=== PATIENT | female | born 1960 | race Caucasian/White ===

== ENCOUNTER 2018-04-02 22:38 | Emergency (ER) | payer MEDICAID ==
--- NOTE | 2018-04-03 00:34 | ER Document Report ---
ED General - General Mode of Arrival: Ambulatory Information source: Patient TRAVEL OUTSIDE OF THE U.S. IN LAST 30 DAYS: No - General Chief Complaint: Back Pain Stated Complaint: BACK PAIN Notes: 57 y.o female with chronic back pain presents to the ED with back pain. Pt reports that she just moved out here from [place] because her sister just and she moved here to take care of her nephew who would otherwise be living by himself. She reports that a couple years ago she had herniated the L3- L5 area and had a surgery on her back. She reports some severe nerve damage to her bilateral legs with burning and tingling radiating down her bilateral legs. She states that in the last 24 hours she has had exacerbated pain but she cannot associate it with anything. Pt reports that she has fallen in the past week. She denies any fever or trouble with urination. She reports taking ibuprofen for her pain without any relief. (NARESH SANTIAGO) - Related Data Allergies/Adverse Reactions: Penicillins Allergy (Verified 04/02/18 22:43) Sulfa (Sulfonamide Antibiotics) Allergy (Verified 04/02/18 22:43) Past Medical History - General Information source: Patient - Social History Smoking Status: Never Smoker Chew tobacco use (# tins/day): No Frequency of alcohol use: Rare Drug Abuse: None Family History: Reviewed & Not Pertinent Patient has suicidal ideation: No Patient has homicidal ideation: No Renal/ Medical History: Denies: Hx Peritoneal Dialysis Musculoskeletal Medical History: Reports Other - lumbar spine with herniated discs - repared with surgery Past Surgical History: Reports: Other - lumbar spine surgery for herniated discs Review of Systems - Review of Systems Constitutional: See HPI. denies: Fever Genitourinary: See HPI, Other - denies: trouble with urination Musculoskeletal: See HPI, Back pain Neurological/Psychological: Tingling - burning and tingling radiating down her legs Physical Exam - Vital signs Vitals: Temp Pulse Resp BP Pulse Ox 98.2 F 87 18 171/84 H 99 04/02/18 22:54 04/02/18 22:54 04/02/18 22:54 04/02/18 22:54 04/02/18 22:54 - Notes Notes: Physical Exam: General: Alert, appears well. HEENT: Normocephalic. Atraumatic. PERRL. Extraocular movements intact. Oropharynx clear. Neck: Supple. Non-tender. Respiratory: No respiratory distress. Clear and equal breath sounds bilaterally. Cardiovascular: Regular rate and rhythm. Abdominal: Normal Inspection. Non-tender. No distension. Normal Bowel Sounds. Back: Old, well healed surgical scar. Paraspinal tenderness to palpation. Midline tenderness to palpation. No bruising. No deformity or step off. Extremities: Moves all four extremities. Upper extremities: Normal inspection. Normal ROM. Lower extremities: Ambulatory. Normal inspection. No edema. Normal ROM. Neurological: Normal cognition. AAOx3. Normal speech. Psychological: Normal affect. Normal Mood. Skin: Warm. Dry. Normal color. old, well healed surgical scar to back. (NARESH SANTIAGO) Course - Re-evaluation Re-evalutation: 04/03/18 00:43 We will provide community care clinic to patient. She is well-appearing has no red flags to suggest infectious etiology or any concerns for cauda equina. Patient's pain radiates down both legs tingling in nature consistent with sciatica. Denies any dysuria. Will provide Decadron and Robaxin, community clinic referral also provided. (EDA RAMIREZ) - Vital Signs Vital signs: Temp Pulse Resp BP Pulse Ox 98.2 F 70 18 151/90 H 100 04/02/18 22:54 04/03/18 00:59 04/02/18 22:54 04/03/18 00:59 04/03/18 00:59 Discharge - Discharge Clinical Impression: Low back pain Qualifiers: Chronicity: chronic Back pain laterality: bilateral Sciatica presence: with sciatica Sciatica laterality: bilateral sciatica Qualified Code(s): M54.42 - Lumbago with sciatica, left side Condition: Good Disposition: HOME, SELF-CARE Instructions: Low Back Pain ([facility]) Additional Instructions: Please take medications as prescribed. You have been referred to community care in clinic please follow-up with them for reevaluation as well as consideration for pain management Prescriptions: Methocarbamol [Robaxin 750 mg Tablet] 750 mg PO ASDIR PRN #40 tablet PRN Reason: Referrals: [facility] [Provider Group] - Follow up as needed Scribe Attestation: 04/07/18 14:54 I personally performed the services described in the documentation, reviewed and edited the documentation which was dictated to the scribe in my presence, and it accurately records my words and actions. (EDA RAMIREZ) Scribe Documentation - Scribe Written by Eli:: Eli Aguiar 04/03/18 0040 acting as scribe for :: Julian
[2018-04-03] MEDS ORDERED: DEXAMETHASONE SOD PHOS INJ 10 MG/1 ML VIAL IM ONE (00:45)
[2018-04-03 01:51] VITALS: BP 151/90
== END 2018-04-03 01:01 | disposition home or self-care (01) ==
LOC: ER 22:38
DX: M54.42 Lumbago with sciatica, left side (principal); M54.9 Dorsalgia, unspecified; G89.29 Other chronic pain; R20.0 Anesthesia of skin
CPT/HCPCS: 99283; 96372; J1100

== ENCOUNTER 2018-07-06 13:38 | Emergency (ER) | payer MEDICAID ==
[2018-07-06 13:44] VITALS: BP 141/110
[2018-07-06] MEDS ORDERED: RINGERS SOLUTION,LACTATED 1,000 ML IV ONE (14:38)
--- NOTE | 2018-07-06 14:39 | ER Document Report ---
ED Medical Screen (RME) - General Chief Complaint: Weakness Stated Complaint: MUSCLE WEAKNESS Time Seen by Provider: 07/06/18 14:36 Notes: 58 years old female presents today with general malaise body aches and pain nausea and vomited once. Denies any dysuria frequency urgency. Difficult historian TRAVEL OUTSIDE OF THE U.S. IN LAST 30 DAYS: No - Related Data Allergies/Adverse Reactions: Penicillins Allergy (Verified 07/06/18 13:42) Sulfa (Sulfonamide Antibiotics) Allergy (Verified 07/06/18 13:42) Past Medical History - Social History Chew tobacco use (# tins/day): No Frequency of alcohol use: None Drug Abuse: None Renal/ Medical History: Denies: Hx Peritoneal Dialysis Past Surgical History: Reports: Hx Orthopedic Surgery - back, Other - lumbar spine surgery for herniated discs Physical Exam - Vital signs Vitals: Temp Pulse Resp BP Pulse Ox 98 F 71 18 141/110 H 98 07/06/18 13:42 07/06/18 13:42 07/06/18 13:42 07/06/18 13:42 07/06/18 13:42 Course - Vital Signs Vital signs: Temp Pulse Resp BP Pulse Ox 98 F 71 18 141/110 H 98 07/06/18 13:42 07/06/18 13:42 07/06/18 13:42 07/06/18 13:42 07/06/18 13:42
--- NOTE | 2018-07-06 15:33 | RADIOLOGY REPORT (SQ) ---
EXAM DESCRIPTION: ACUTE ABDOMEN SERIES COMPLETED DATE/TIME: 07/06/2018 3:23 pm REASON FOR STUDY: Nausea vomiting COMPARISON: None. NUMBER OF VIEWS: Three views. TECHNIQUE: Frontal chest, supine abdomen and upright/decubitus abdomen radiographic images acquired. LIMITATIONS: None. FINDINGS: CHEST: Lungs clear of infiltrates. FREE AIR: None. No abnormal gas collections. BOWEL GAS PATTERN: Nonobstructive pattern. No dilated loops or air fluid levels. Large burden of sto ol in the left and right colon with dense stool balls in the distal colon. CALCIFICATIONS: No suspicious calcifications. HARDWARE: Posterior lumbar fusion hardware of L3 through L5. SOFT TISSUES: No gross mass or suggestion of organomegaly. BONES: No acute fracture. No worrisome bone lesions. OTHER: No other significant finding. IMPRESSION: 1. No acute abnormality of the lungs in frontal projection. 2. Nonobstructive pattern of bowel gas with gas and stool present to the rectum. There is a large b urden of stool in the left and right colon with dense stool balls in the distal colon. No free air i n the abdomen. TECHNICAL DOCUMENTATION: JOB ID: [id number] [employer]- All Rights Reserved Reading location - IP/workstation name: [id number]
[2018-07-06] MEDS ORDERED: ONDANSETRON HCL INJ/PF 4 MG/2 ML SDV IV ONE (15:36)
[2018-07-06 15:58] LABS: ABSOLUTE BASOPHILS # (AUTO) 0.1 10^3/uL (0.0-0.2); ABSOLUTE EOSINOPHILS # (AUTO) 0.2 10^3/uL (0.0-0.6); ABSOLUTE LYMPHOCYTES (AUTO) 1.3 10^3/uL (0.5-4.7); ABSOLUTE MONOCYTES (AUTO) 0.4 10^3/uL (0.1-1.4); ABSOLUTE NEUT (AUTO) 5.6 10^3/uL (1.7-8.2); EOSINOPHILS % (AUTO) 2.1 % (0-6); HEMATOCRIT 45.6 % (36.0-47.0); HEMOGLOBIN 15.6 g/dL (12.0-15.5); LYMPHOCYTES % (AUTO) 16.9 % (13-45); MEAN CORPUSCULAR HEMOGLOBIN 31.8 pg (27.0-33.4); MEAN CORPUSCULAR HGB CONC 34.2 g/dL (32.0-36.0); MEAN CORPUSCULAR VOLUME 93 fl (80-97); MONOCYTES % (AUTO) 5.1 % (3-13); PLATELET COUNT 303 10^3/uL (150-450); RED CELL DISTRIBUTION WIDTH 13.1 % (11.5-14.0); SEGMENTED NEUTROPHILS % (AUTO) 74.9 % (42-78); TOTAL CELLS COUNTED % (AUTO) 100 %; WHITE BLOOD COUNT 7.4 10^3/uL (4.0-10.5)
[2018-07-06 16:22] LABS: A TYPE INFLUENZA AG NEGATIVE (NEGATIVE); B INFLUENZA AG NEGATIVE (NEGATIVE)
[2018-07-06 16:27] LABS: ALANINE AMINOTRANSFERASE 52 U/L (9-52); ALBUMIN 4.8 g/dL (3.5-5.0); ALKALINE PHOSPHATASE 117 U/L (38-126); ANION GAP 15 (5-19); ASPARTATE AMINO TRANSFERASE 47 U/L (14-36); BILIRUBIN,DIRECT 0.4 mg/dL (0.0-0.4); BILIRUBIN,TOTAL 0.9 mg/dL (0.2-1.3); BLOOD UREA NITROGEN 12 mg/dL (7-20); CALCIUM 10.1 mg/dL (8.4-10.2); CARBON DIOXIDE 28 mmol/L (22-30); CHLORIDE 99 mmol/L (98-107); GLUCOSE 108 mg/dL (75-110); POTASSIUM 4.9 mmol/L (3.6-5.0); SODIUM 142.2 mmol/L (137-145); TOTAL PROTEIN 7.5 g/dL (6.3-8.2)
[2018-07-06 16:29] LABS: CREATINE KINASE < 20 U/L (30-135)
[2018-07-06 16:43] LABS: FREE T3 3.52 pg/mL (2.77-5.27); FREE T4 (FREE THYROXINE) 1.44 ng/dL (0.78-2.19)
[2018-07-06 16:56] LABS: THYROID STIMULATING HORMONE 1.22 uIU/mL (0.47-4.68)
[2018-07-06 17:31] LABS: APPEARANCE,URINE SLIGHTLY-CLOUDY; BILIRUBIN,URINE SMALL (NEGATIVE); COLOR,URINE YELLOW; GLUCOSE, URINE NEGATIVE (NEGATIVE); KETONES,URINE TRACE mg/dL (NEGATIVE); LEUKOCYTE ESTERASE,URINE MODERATE (NEGATIVE); NITRITE,URINE NEGATIVE (NEGATIVE); PROTEIN,URINE 30 mg/dL (NEGATIVE); URINE SPECIFIC GRAVITY 1.029
--- NOTE | 2018-07-06 18:47 | ER Document Report ---
ED General - General Chief Complaint: Weakness Stated Complaint: MUSCLE WEAKNESS Time Seen by Provider: 07/06/18 14:36 Mode of Arrival: Ambulatory Information source: Patient Notes: 58-year-old female presents emergency department with points of generalized weakness, myalgias, nausea. Patient states that symptoms started 2 days ago. Patient denies any fever, chills, chest pain, shortness of breath, abdominal pain, dysuria, hematuria, increased urgency, increased frequency. No history of sick contacts. Patient also complains of a flair up of her chronic back pain. Says that she was prescribed oxycodone by her PCP but ran out of the medication and her PCP referred her to pain management. Patient is able to ambulate. Denies numbness, tingling, weakness, bowel or bladder incontinence. TRAVEL OUTSIDE OF THE [place] IN LAST 30 DAYS: No - HPI Onset: Other - 2-day history Onset/Duration: Gradual Associated symptoms: Other - back pain Exacerbated by: Denies Relieved by: Denies Similar symptoms previously: Yes Recently seen / treated by doctor: No - Related Data Allergies/Adverse Reactions: Penicillins Allergy (Verified 07/06/18 13:42) Sulfa (Sulfonamide Antibiotics) Allergy (Verified 07/06/18 13:42) Past Medical History - Social History Smoking Status: Never Smoker Chew tobacco use (# tins/day): No Frequency of alcohol use: None Drug Abuse: None Family History: Reviewed & Not Pertinent Patient has suicidal ideation: No Patient has homicidal ideation: No Renal/ Medical History: Denies: Hx Peritoneal Dialysis Past Surgical History: Reports: Hx Orthopedic Surgery - back, Other - lumbar spine surgery for herniated discs Review of Systems - Review of Systems Constitutional: Weakness EENT: No symptoms reported Cardiovascular: No symptoms reported Respiratory: No symptoms reported Gastrointestinal: Nausea, Vomiting Genitourinary: No symptoms reported Female Genitourinary: No symptoms reported Musculoskeletal: No symptoms reported Skin: No symptoms reported Hematologic/Lymphatic: No symptoms reported Neurological/Psychological: No symptoms reported -: Yes All other systems reviewed and negative Physical Exam - Vital signs Vitals: Temp Pulse Resp BP Pulse Ox 98 F 71 18 141/110 H 98 07/06/18 13:42 07/06/18 13:42 07/06/18 13:42 07/06/18 13:42 07/06/18 13:42 - Notes Notes: PHYSICAL EXAMINATION: GENERAL: Well-appearing, well-nourished and in no acute distress. HEAD: Atraumatic, normocephalic. EYES: Pupils equal round and reactive to light, extraocular movements intact, conjunctiva are normal. ENT: Nares patent, oropharynx clear without exudates. Moist mucous membranes. NECK: Normal range of motion, supple without lymphadenopathy LUNGS: Breath sounds clear to auscultation bilaterally and equal. No wheezes rales or rhonchi. HEART: Regular rate and rhythm without murmurs ABDOMEN: Soft, nontender, nondistended abdomen. No guarding, no rebound. No masses appreciated. Female : deferred Musculoskeletal: Normal range of motion, no pitting or edema. No cyanosis. NEUROLOGICAL: Cranial nerves grossly intact. Normal speech, normal gait. Normal sensory, motor exams PSYCH: Normal mood, normal affect. SKIN: Warm, Dry, normal turgor, no rashes or lesions noted. Course - Re-evaluation Re-evalutation: 07/06/18 18:44 Patient wants to leave AGAINST MEDICAL ADVICE. I just saw the patient in the room. Medical screening exam was preformed and labs obtained. Lab work still pending. Patient upset because she hasn't had any pain medication given to her for her chronic back pain. She says that her family physician has been prescribing her oxycodone. She has been referred to pain management for her chronic back pain. I told the patient I'd give her some toradol while her lab work was pending. Patient says she just wants to go home. Patient understands that she may or her condition may worsen by leaving against medical advice. She is competent to make medical decisions. 07/06/18 22:18 - Vital Signs Vital signs: Temp Pulse Resp BP Pulse Ox 98 F 71 18 141/110 H 98 07/06/18 13:42 07/06/18 13:42 07/06/18 13:42 07/06/18 13:42 07/06/18 13:42 - Laboratory Result Diagrams: 07/06/18 15:32 07/06/18 15:32 Laboratory results interpreted by me: 07/06/18 07/06/18 07/06/18 15:32 15:32 16:55 Hgb 15.6 H Est GFR (Non-Af Amer) 59 L Lactic Acid 0.6 L AST 47 H Creatine Kinase < 20 L Urine Protein Urine Ketones Urine Bilirubin Urine Urobilinogen Ur Leukocyte Esterase Urine Ascorbic Acid 07/06/18 16:55 Hgb Est GFR (Non-Af Amer) Lactic Acid AST Creatine Kinase Urine Protein 30 H Urine Ketones TRACE H Urine Bilirubin SMALL H Urine Urobilinogen 2.0 H Ur Leukocyte Esterase MODERATE H Urine Ascorbic Acid 40 H Discharge - Discharge Clinical Impression: Generalized weakness Condition: Stable Disposition: AGAINST MEDICAL ADVICE Forms: Parent Work Note Referrals: YOKO FINK MD [Primary Care Provider] - Follow up as needed
== END 2018-07-06 18:45 | disposition left against medical advice (07) ==
LOC: ER 13:38
DX: R53.1 Weakness (principal); M79.10 Myalgia, unspecified site; G89.29 Other chronic pain; M54.9 Dorsalgia, unspecified; Z88.0 Allergy status to penicillin; Z88.2 Allergy status to sulfonamides
CPT/HCPCS: 99285; 96361; 96374; 36415; 84439; 82550; 84443; 85025; 80053; 81001; 84481; 83605; 87804; 74022; J2405; J7120

== ENCOUNTER 2018-10-26 02:56 | Emergency (ER) | payer MEDICAID ==
[2018-10-26] MEDS ORDERED: LORAZEPAM 1 MG TABLET PO ONE (03:31)
--- NOTE | 2018-10-26 03:31 | ER Document Report ---
ED General - General Stated Complaint: CONFUSION Time Seen by Provider: 10/26/18 03:18 Primary Care Provider: YOKO FINK MD [ACTIVE STAFF] - Follow up as needed TRAVEL OUTSIDE OF THE U.S. IN LAST 30 DAYS: No - HPI Notes: Patient is a 58-year-old female that presents to the emergency department for chief complaint of confusion. Patient presents from home by EMS for acute confusion. Patient son states that she was more tearful today than usual. She has a history of anxiety and depression in the past. He states when she went to bed at 10 PM she seemed to be okay. He heard some noises in her room at 2 AM and when he found her she seemed confused. Patient was trying to use the bathroom in her room. When he tried to redirect her she attempted to go out the front door believing that was the bathroom. Patient's son also states that she thought her daughter was in the house however patient's daughter lives in [place]. She has never had confusion like this before. Patient's only complaint is low back pain which is chronic in nature for her. She used to be on pain management but was let go for unknown reasons. She states she is on kratom, and [id number] herbal supplement for pain. Past Medical History: Chronic back pain, anxiety, depression Past Surgical History: Lumbar spinal surgery Social History: reviewed in chart Family History: Reviewed and noncontributory for presenting illness Allergies: Reviewed, see documented allergy list. REVIEW OF SYSTEMS: CONSTITUTIONAL : No fever No chills No diaphoresis No recent illness EENT: No vision changes No congestion No sore throat CARDIOVASCULAR: No chest pain No palpitations RESPIRATORY: No shortness of breath No cough No difficulty breathing GASTROINTESTINAL: No abdominal pain No nausea No vomiting No diarrhea GENITOURINARY: No dysuria No hematuria No difficulty urinating MUSCULOSKELETAL: back pain No leg pain No arm pain SKIN: No rashes No lesions LYMPHATIC: No swollen, enlarged glands. NEUROLOGICAL: No lightheadedness No headache No weakness No paresthesias PSYCHIATRIC: No anxiety No depression PHYSICAL EXAMINATION: Vital signs reviewed, nursing noted reviewed. GENERAL: Well-appearing, well-nourished HEAD: Atraumatic, normocephalic. EYES: Eyes appear normal, extraocular movements intact, sclera anicteric, conjunctiva are normal. ENT: nares patent, oropharynx clear without exudates. Moist mucous membranes. NECK: Normal range of motion, supple without lymphadenopathy LUNGS: Breath sounds clear to auscultation bilaterally and equal. No wheezes rales or rhonchi. HEART: Regular rate and rhythm without murmurs ABDOMEN: Soft, nontender, normoactive bowel sounds. No rebound, guarding, or rigidity. No masses appreciated. Back: Old midline lumbar surgical scar, L5/L4 tenderness to palpation, no paraspinal lumbar tenderness, normal range of motion of spine with no overlying erythema or rashes EXTREMITIES: Nontender, good range of motion, no pitting or edema. NEUROLOGICAL: No focal neurological deficits. Moves all extremities spontaneously Motor and sensory grossly intact on exam. PSYCH: Anxious, tearful, tremulous SKIN: Warm, Dry, normal turgor, no rashes or lesions noted on exposed skin - Related Data Allergies/Adverse Reactions: Penicillins Allergy (Verified 10/26/18 03:34) Sulfa (Sulfonamide Antibiotics) Allergy (Verified 10/26/18 03:34) morphine Adverse Reaction (Verified 10/26/18 03:34) Past Medical History - Social History Smoking Status: Unknown if Ever Smoked Family History: Reviewed & Not Pertinent Renal/ Medical History: Denies: Hx Peritoneal Dialysis Past Surgical History: Reports: Hx Orthopedic Surgery - back, Other - lumbar spine surgery for herniated discs Physical Exam - Vital signs Vitals: Resp BP Pulse Ox 18 167/126 H 100 10/26/18 03:05 10/26/18 03:05 10/26/18 03:05 Course - Re-evaluation Re-evalutation: 10/26/18 06:01 Vitals reviewed. Nursing notes reviewed. Patient presented disoriented and very agitated. She has had interval improvement after Haldol and Ativan. Patient still remains very agitated but has periods where she falls asleep. She is continuing to shake her right leg and be very tearful and upset. She is now oriented to person and place but disoriented to time. Nursing had been unable to get an EKG on the patient because she would not hold still and stated she could not stop her leg from shaking. When I was in the room she was able to be redirected and held still without any issues for EKG. Her EKG shows no acute ischemic changes. Urinalysis is positive for infection. The remainder of her lab work is unremarkable. She is not septic or toxic in appearance. Do not think her urinary tract infection is the cause of her acute confusion. She will remain in the emergency room for continued monitoring and psych evaluation in the morning Laboratory 10/26/18 10/26/18 10/26/18 03:15 03:15 04:00 WBC Cancelled 5.6 RBC Cancelled 4.35 Hgb Cancelled 13.3 Hct Cancelled 38.8 MCV Cancelled 89 MCH Cancelled 30.6 MCHC Cancelled 34.3 RDW Cancelled 13.6 Plt Count Cancelled 209 Seg Neutrophils % Cancelled 76.5 Lymphocytes % Cancelled 15.1 Monocytes % Cancelled 5.9 Eosinophils % Cancelled 1.6 Basophils % Cancelled 0.9 Absolute Neutrophils Cancelled 4.3 Absolute Lymphocytes Cancelled 0.8 Absolute Monocytes Cancelled 0.3 Absolute Eosinophils Cancelled 0.1 Absolute Basophils Cancelled 0.1 Platelet Estimate Cancelled Sodium 146.7 H Potassium 4.1 Chloride 114 H Carbon Dioxide 24 Anion Gap 9 BUN 14 Creatinine 1.03 Est GFR ( Amer) > 60 Est GFR (Non-Af Amer) 55 L Glucose 123 H Calcium 9.6 Total Bilirubin 0.3 Direct Bilirubin 0.3 Neonat Total Bilirubin Not Reportable Neonat Direct Bilirubin Not Reportable Neonat Indirect Bili Not Reportable AST 21 ALT 18 Alkaline Phosphatase 129 H Total Protein 6.3 Albumin 4.2 Urine Color Urine Appearance Urine pH Ur Specific [place] Urine Protein Urine Glucose (UA) Urine Ketones Urine Blood Urine Nitrite Urine Bilirubin Urine Urobilinogen Ur Leukocyte Esterase Urine WBC (Auto) Urine RBC (Auto) U Hyaline Cast (Auto) Urine Bacteria (Auto) Squamous Epi Cells Auto Urine Mucus (Auto) Urine Ascorbic Acid Salicylates < 1.0 L Urine Opiates Screen Urine Methadone Screen Acetaminophen < 10 L Ur Barbiturates Screen Ur Phencyclidine Scrn Ur Amphetamines Screen U Benzodiazepines Scrn Urine Cocaine Screen U Marijuana (THC) Screen Serum Alcohol < 10 Slides for Path Review Cancelled 10/26/18 10/26/18 05:05 05:05 WBC RBC Hgb Hct MCV MCH MCHC RDW Plt Count Seg Neutrophils % Lymphocytes % Monocytes % Eosinophils % Basophils % Absolute Neutrophils Absolute Lymphocytes Absolute Monocytes Absolute Eosinophils Absolute Basophils Platelet Estimate Sodium Potassium Chloride Carbon Dioxide Anion Gap BUN Creatinine Est GFR ( Amer) Est GFR (Non-Af Amer) Glucose Calcium Total Bilirubin Direct Bilirubin Neonat Total Bilirubin Neonat Direct Bilirubin Neonat Indirect Bili AST ALT Alkaline Phosphatase Total Protein Albumin Urine Color YELLOW Urine Appearance SLIGHTLY-CLOUDY Urine pH 6.0 Ur Specific [place] 1.011 Urine Protein NEGATIVE Urine Glucose (UA) NEGATIVE Urine Ketones NEGATIVE Urine Blood NEGATIVE Urine Nitrite NEGATIVE Urine Bilirubin NEGATIVE Urine Urobilinogen NEGATIVE Ur Leukocyte Esterase LARGE H Urine WBC (Auto) 2 Urine RBC (Auto) 1 U Hyaline Cast (Auto) 1 Urine Bacteria (Auto) TRACE Squamous Epi Cells Auto 1 Urine Mucus (Auto) RARE Urine Ascorbic Acid NEGATIVE Salicylates Urine Opiates Screen NEGATIVE Urine Methadone Screen NEGATIVE Acetaminophen Ur Barbiturates Screen NEGATIVE Ur Phencyclidine Scrn NEGATIVE Ur Amphetamines Screen NEGATIVE U Benzodiazepines Scrn NEGATIVE Urine Cocaine Screen NEGATIVE U Marijuana (THC) Screen NEGATIVE Serum Alcohol Slides for Path Review Head CT 10/26/18 03:17 IMPRESSION: Significantly limited due to motion artifact. As visualized, unremarkable exam TECHNICAL DOCUMENTATION: Quality ID # [id number]: Final reports with documentation of one or more dose reduction techniques (e.g., Automated exposure control, adjustment of the mA and/or kV according to patient size, use of iterative reconstruction technique) copyright 2011 [employer]- All Rights Reserved - Vital Signs Vital signs: Temp Pulse Resp BP Pulse Ox 98.6 F 15 175/133 H 98 10/26/18 03:25 10/26/18 05:15 10/26/18 05:15 10/26/18 05:15 - Laboratory Result Diagrams: 10/26/18 04:00 10/26/18 03:15 Laboratory results interpreted by me: 10/26/18 10/26/18 03:15 05:05 Sodium 146.7 H Chloride 114 H Est GFR (Non-Af Amer) 55 L Glucose 123 H Alkaline Phosphatase 129 H Ur Leukocyte Esterase LARGE H Salicylates < 1.0 L Acetaminophen < 10 L - EKG Interpretation by Me Additional EKG results interpreted by me: 10/26/18 06:00 Interpreted by myself [id number]: Normal sinus rhythm, rate 73, normal axis, no ectopy, QTC 428 Discharge - Discharge Clinical Impression: Acute confusion, Agitated, Elevated blood pressure reading UTI (urinary tract infection) Qualifiers: Urinary tract infection type: acute cystitis Hematuria presence: without hem aturia Qualified Code(s): N30.00 - Acute cystitis without hematuria Condition: Stable Referrals: YOKO FINK MD [ACTIVE STAFF] - Follow up as needed
[2018-10-26] MEDS ORDERED: HALOPERIDOL LACTATE INJ 5 MG/1 ML VIAL IV ONE (04:02)
--- NOTE | 2018-10-26 04:06 | RADIOLOGY REPORT (SQ) ---
EXAM DESCRIPTION: CT HEAD WITHOUT IV CONTRAST COMPLETED DATE/TME: 10/26/2018 03:17 CLINICAL HISTORY: 58 years, Female, confusion COMPARISON: None. TECHNIQUE: [id number] Images stored on PACS. All CT scanners at this facility use dose modulation, iterative reconstruction, and/or weight based dosing when appropriate to reduce radiation dose to as low as reasonably achievable (ALARA). [facility]: Dose Right [facility]: CareDose [facility]: Dose Right [facility]: Teradose 4D [facility]: [employer] LIMITATIONS: None. FINDINGS: Motion artifact limits the exam and significantly degrades image quality. As visualized the globes are intact and the paranasal sinuses and mastoid air cells are well aerated. No convincing evidence for skull fracture. No convincing evidence for acute intracranial hemorrhage. CT is limited for evaluation of acute infarct. No gross evidence for large or territorial acute infarct. No discrete mass or midline shift IMPRESSION: Significantly limited due to motion artifact. As visualized, unremarkable exam TECHNICAL DOCUMENTATION: Quality ID # [id number]: Final reports with documentation of one or more dose reduction techniques (e.g., Automated exposure control, adjustment of the mA and/or kV according to patient size, use of iterative reconstruction technique) copyright 2011 [employer]- All Rights Reserved
[2018-10-26] MEDS ORDERED: IBUPROFEN 600 MG TABLET PO ONE (04:09)
[2018-10-26 04:14] LABS: ABSOLUTE BASOPHILS # (AUTO) 0.1 10^3/uL (0.0-0.2); ABSOLUTE EOSINOPHILS # (AUTO) 0.1 10^3/uL (0.0-0.6); ABSOLUTE LYMPHOCYTES (AUTO) 0.8 10^3/uL (0.5-4.7); ABSOLUTE MONOCYTES (AUTO) 0.3 10^3/uL (0.1-1.4); ABSOLUTE NEUT (AUTO) 4.3 10^3/uL (1.7-8.2); BASOPHILS % (AUTO) 0.9 % (0-2); EOSINOPHILS % (AUTO) 1.6 % (0-6); HEMATOCRIT 38.8 % (36.0-47.0); HEMOGLOBIN 13.3 g/dL (12.0-15.5); LYMPHOCYTES % (AUTO) 15.1 % (13-45); MEAN CORPUSCULAR HEMOGLOBIN 30.6 pg (27.0-33.4); MEAN CORPUSCULAR HGB CONC 34.3 g/dL (32.0-36.0); MEAN CORPUSCULAR VOLUME 89 fl (80-97); MONOCYTES % (AUTO) 5.9 % (3-13); PLATELET COUNT 209 10^3/uL (150-450); RED BLOOD COUNT 4.35 10^6/uL (3.72-5.28); RED CELL DISTRIBUTION WIDTH 13.6 % (11.5-14.0); SEGMENTED NEUTROPHILS % (AUTO) 76.5 % (42-78); TOTAL CELLS COUNTED % (AUTO) 100 %; WHITE BLOOD COUNT 5.6 10^3/uL (4.0-10.5)
[2018-10-26] MEDS ORDERED: OXYCODONE-ACETAMINOPHEN 5-325 MG TABLET PO ONE (05:21)
[2018-10-26 05:43] LABS: APPEARANCE,URINE SLIGHTLY-CLOUDY; BILIRUBIN,URINE NEGATIVE (NEGATIVE); COLOR,URINE YELLOW; GLUCOSE, URINE NEGATIVE (NEGATIVE); KETONES,URINE NEGATIVE (NEGATIVE); LEUKOCYTE ESTERASE,URINE LARGE (NEGATIVE); NITRITE,URINE NEGATIVE (NEGATIVE); PROTEIN,URINE NEGATIVE (NEGATIVE); URINE SPECIFIC GRAVITY 1.011; UROBILINOGEN,URINE NEGATIVE mg/dL (<2.0)
[2018-10-26] MEDS ORDERED: NITROFURANTOIN MONOHYD/M-CRYST 100 MG CAPSULE PO ONE (05:47)
[2018-10-26] MEDS ORDERED: METOPROLOL TARTRATE PF/INJ 5 MG/5 ML SDV IV ONE (05:48)
[2018-10-26 05:54] LABS: URINE AMPHETAMINES SCREEN NEGATIVE; URINE BARBITURATES SCREEN NEGATIVE; URINE BENZODIAZEPINES SCREEN NEGATIVE; URINE COCAINE SCREEN NEGATIVE; URINE MARIJUANA (THC) SCREEN NEGATIVE; URINE METHADONE SCREEN NEGATIVE; URINE PHENCYCLIDINE SCREEN NEGATIVE
[2018-10-26 05:55] LABS: ALANINE AMINOTRANSFERASE 18 U/L (9-52); ALBUMIN 4.2 g/dL (3.5-5.0); ALKALINE PHOSPHATASE 129 U/L (38-126); ANION GAP 9 (5-19); ASPARTATE AMINO TRANSFERASE 21 U/L (14-36); BILIRUBIN,DIRECT 0.3 mg/dL (0.0-0.4); BILIRUBIN,TOTAL 0.3 mg/dL (0.2-1.3); BLOOD UREA NITROGEN 14 mg/dL (7-20); CALCIUM 9.6 mg/dL (8.4-10.2); CARBON DIOXIDE 24 mmol/L (22-30); CHLORIDE 114 mmol/L (98-107); GLUCOSE 123 mg/dL (75-110); POTASSIUM 4.1 mmol/L (3.6-5.0); SODIUM 146.7 mmol/L (137-145); TOTAL PROTEIN 6.3 g/dL (6.3-8.2)
[2018-10-26 05:58] LABS: ACETAMINOPHEN < 10 ug/mL (10-30); ALCOHOL < 10 mg/dL (NONE DETECTED); SALICYLATE < 1.0 mg/dL (2.0-20.0)
[2018-10-26 09:51] VITALS: BP 127/63
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
[2018-10-26] MEDS ORDERED: ACETAMINOPHEN 325 MG TABLET PO ONE (11:46)
--- NOTE | 2018-10-26 11:46 | ER Document Report ---
Doctor's Note Notes: 10/26/18 11:44 Patient seen and examined. I made an attempt to see her earlier but she was sleeping, would not talk to me. I was notified by nursing that she was complaining of leg pain. I went into the room to evaluate her. She was tearful. She asked immediately for pain medication. I expressed to her my concerns over the gia on of last evening. She states to me she believes she was confused because she is "in so much pain." I told her I did not suspect that was the case, I was concerned about medication misuse/overuse. She became very defensive. I offered to evaluate her leg, but told her I would not be administering any sort of narcotic medications. She then stated "what is the point then?" She was offered Tylenol. Patient is tearful, initially cooperative. Then became resistant to evaluation. Heart is regular rate and rhythm, lungs are clear to auscultation bilaterally. Cursory examination of the leg revealed no obvious abnormalities. Sensation is intact, dorsalis pedis pulses 2+. My strong suspicion is that this episode was as a result of medication overuse/misuse. I do strongly suspect a drug abuse issue here. The dangers of creatinine were explained in detail to the patient. I did offer the idea of drug counseling, patient was resistant. She states her issue is chronic pain, not drug abuse. Patient is at this point resistant to any sort of treatment for drug issues. It is unlikely we can offer her any sort of help at this time. We will discharge her to the care of her son.
--- NOTE | 2018-10-26 12:39 | EKG REPORT ---
SEVERITY:- NORMAL ECG - SINUS RHYTHM : Confirmed by: Prabha Nolasco MD 26-Oct-2018 12:39:03
--- NOTE | 2018-10-26 12:41 | EKG REPORT ---
SEVERITY:- DEFECTIVE ECG - SINUS RHYTHM NONSPECIFIC T ABNORMALITIES, LATERAL LEADS BSELINE ARTIFACT : Confirmed by: Prabha Nolasco MD 26-Oct-2018 12:39:40
== END 2018-10-26 12:53 | disposition home or self-care (01) ==
LOC: ER 02:56
DX: R41.0 Disorientation, unspecified (principal); N30.00 Acute cystitis without hematuria; R03.0 Elevated blood-pressure reading, without diagnosis of hypertension; Z91.14 Patient's other noncompliance with medication regimen; M54.9 Dorsalgia, unspecified; G89.29 Other chronic pain
CPT/HCPCS: 93005; 99285; 96374; 96375; 36415; 80307 ×4; 85025; 80053; 81001; 70450; 93010; J1630; J3490 ×3; J8499

== ENCOUNTER 2018-11-11 05:42 | Inpatient (IN) | payer MEDICAID ==
[2018-11-11] MEDS ORDERED: NORMAL SALINE 1000 ML 1,000 ML IV ONE ×2 (05:51→07:33)
--- NOTE | 2018-11-11 05:54 | ER Document Report ---
ED Medical Screen (RME) - General Stated Complaint: ALTERED MENTAL STATUS Time Seen by Provider: 11/11/18 05:45 Primary Care Provider: KESHAWN CM MD [Primary Care Provider] - Follow up as needed Notes: 58-year-old female, chief complaint of confusion since waking up last night "in a panic" per family members, reported by EMS. Patient is having difficulty communicating or forming full sentences. She does follow directions, she denies recreational drug use, she does report a headache and pain in her legs. She denies chest pain or shortness of breath. She denies any daily medications or medical problems. TRAVEL OUTSIDE OF THE [place] IN LAST 30 DAYS: No - Related Data Allergies/Adverse Reactions: Penicillins Allergy (Verified 10/26/18 03:34) Sulfa (Sulfonamide Antibiotics) Allergy (Verified 10/26/18 03:34) morphine Adverse Reaction (Verified 10/26/18 03:34) Past Medical History Renal/ Medical History: Denies: Hx Peritoneal Dialysis Psychiatric Medical History: Reports: Hx Depression - and anxiety Past Surgical History: Reports: Hx Orthopedic Surgery - back, Other - lumbar spine surgery for herniated discs Physical Exam - Vital signs Vitals: Temp Pulse Resp BP Pulse Ox 99.9 F 103 H 18 131/80 H 99 11/11/18 05:45 11/11/18 05:45 11/11/18 05:45 11/11/18 05:45 11/11/18 05:45 - Neurological [place] Coma Scale Eye Opening: Spontaneous Lucie Coma Scale Verbal: Confused Lucie Coma Scale Motor: Obeys Commands Lucie Coma Scale Total: 14 Speech: Expressive aphasia Cranial nerves: Normal Cerebellar coordination: Normal Motor strength normal: LUE, RUE, LLE, RLE Course - Re-evaluation Re-evalutation: Patient is restless. GCS of 14. She is cooperative but she has trouble forming a full sentence. Answers many questions wrong. Unsure of recreational drug use, intracranial hemorrhage, or other etiology. Patient monitor, workup pending. I have greeted and performed a rapid initial assessment of this patient. A comprehensive ED assessment and evaluation of the patient, analysis of test results and completion of the medical decision making process will be conducted by additional ED providers. - Vital Signs Vital signs: Temp Pulse Resp BP Pulse Ox 99.9 F 103 H 18 131/80 H 99 11/11/18 05:45 11/11/18 05:45 11/11/18 05:45 11/11/18 05:45 11/11/18 05:45 Doctor's Discharge - Discharge Referrals: KESHAWN CM MD [Primary Care Provider] - Follow up as needed
[2018-11-11 05:59] LABS: ABSOLUTE BASOPHILS # (AUTO) 0.1 10^3/uL (0.0-0.2); ABSOLUTE EOSINOPHILS # (AUTO) 0.2 10^3/uL (0.0-0.6); ABSOLUTE LYMPHOCYTES (AUTO) 2.2 10^3/uL (0.5-4.7); ABSOLUTE MONOCYTES (AUTO) 0.8 10^3/uL (0.1-1.4); ABSOLUTE NEUT (AUTO) 7.6 10^3/uL (1.7-8.2); BASOPHILS % (AUTO) 0.7 % (0-2); EOSINOPHILS % (AUTO) 1.8 % (0-6); HEMATOCRIT 40.8 % (36.0-47.0); HEMOGLOBIN 13.7 g/dL (12.0-15.5); LYMPHOCYTES % (AUTO) 19.9 % (13-45); MEAN CORPUSCULAR HEMOGLOBIN 30.5 pg (27.0-33.4); MEAN CORPUSCULAR HGB CONC 33.6 g/dL (32.0-36.0); MEAN CORPUSCULAR VOLUME 91 fl (80-97); MONOCYTES % (AUTO) 7.4 % (3-13); PLATELET COUNT 264 10^3/uL (150-450); RED CELL DISTRIBUTION WIDTH 13.9 % (11.5-14.0); SEGMENTED NEUTROPHILS % (AUTO) 70.2 % (42-78); TOTAL CELLS COUNTED % (AUTO) 100 %; WHITE BLOOD COUNT 10.9 10^3/uL (4.0-10.5)
[2018-11-11 06:13] LABS: ALANINE AMINOTRANSFERASE 35 U/L (9-52); ALKALINE PHOSPHATASE 132 U/L (38-126); ANION GAP 14 (5-19); ASPARTATE AMINO TRANSFERASE 16 U/L (14-36); BILIRUBIN,DIRECT 0.3 mg/dL (0.0-0.4); BILIRUBIN,TOTAL 0.3 mg/dL (0.2-1.3); BLOOD UREA NITROGEN 21 mg/dL (7-20); CALCIUM 9.3 mg/dL (8.4-10.2); CARBON DIOXIDE 16 mmol/L (22-30); CHLORIDE 115 mmol/L (98-107); GLUCOSE 108 mg/dL (75-110); POTASSIUM 3.9 mmol/L (3.6-5.0); SODIUM 145.2 mmol/L (137-145); TOTAL PROTEIN 6.3 g/dL (6.3-8.2)
[2018-11-11 06:14] LABS: ACETAMINOPHEN < 10 ug/mL (10-30); ALCOHOL < 10 mg/dL (NONE DETECTED); SALICYLATE < 1.0 mg/dL (2.0-20.0)
--- NOTE | 2018-11-11 06:36 | RADIOLOGY REPORT (SQ) ---
EXAM DESCRIPTION: CT HEAD WITHOUT IV CONTRAST COMPLETED DATE/TME: 11/11/2018 05:51 CLINICAL HISTORY: 58 years, Female, altered mental status COMPARISON: 10/26/2018 CT TECHNIQUE: 253 Images stored on PACS. All CT scanners at this facility use dose modulation, iterative reconstruction, and/or weight based dosing when appropriate to reduce radiation dose to as low as reasonably achievable (ALARA). [facility]: Dose Right [facility]: CareDose [facility]: Dose Right [facility]: Teradose 4D [facility]: [employer] Technologies LIMITATIONS: None. FINDINGS: Globes are intact. Paranasal sinuses and mastoid air cells are unremarkable. No displaced or depressed skull fracture. Motion artifact limits the exam and degrades image quality. As visualized no evidence for intra or extra-axial hemorrhage. No mass mass effect or midline shift. CT is limited for evaluation of acute infarct. No CT evidence for large or territorial acute infarct. IMPRESSION: Negative for acute intracranial abnormality TECHNICAL DOCUMENTATION: Quality ID # 436: Final reports with documentation of one or more dose reduction techniques (e.g., Automated exposure control, adjustment of the mA and/or kV according to patient size, use of iterative reconstruction technique) copyright 2010 [employer]- All Rights Reserved
[2018-11-11 06:47] LABS: APPEARANCE,URINE CLEAR; BILIRUBIN,URINE NEGATIVE (NEGATIVE); COLOR,URINE YELLOW; GLUCOSE, URINE NEGATIVE (NEGATIVE); KETONES,URINE NEGATIVE (NEGATIVE); LEUKOCYTE ESTERASE,URINE NEGATIVE (NEGATIVE); NITRITE,URINE NEGATIVE (NEGATIVE); PROTEIN,URINE 30 mg/dL (NEGATIVE); URINE SPECIFIC GRAVITY 1.015; UROBILINOGEN,URINE NEGATIVE mg/dL (<2.0)
--- NOTE | 2018-11-11 06:54 | ER Document Report ---
ED General - General Chief Complaint: Altered Mental Status Stated Complaint: ALTERED MENTAL STATUS Time Seen by Provider: 11/11/18 05:45 Primary Care Provider: KESHAWN CM MD [Primary Care Provider] - Follow up as needed TRAVEL OUTSIDE OF THE [place] IN LAST 30 DAYS: No - HPI Notes: Patient is a 58-year-old female that presents to the emergency department for chief complaint of altered mental status. HPI provided by patient's son. Patient presents from home by EMS with son. He states that she is having bizarre behaviors again. She did have a similar presentation at the beginning of the month. He states after her last visit in the ED she has been normal. Last night he started to hear her moving around and found her confused and behaving bizarrely. The only change she can think of was a new batch of kratom from a different store but he also took this and states he is fine. Patient was diagnosed with a urinary tract infection earlier in the month and had a delay in getting her antibiotics filled, she is currently still on the antibiotics and he reports 2 or 3 days left. He denies any change in eating habits yesterday. He states she has not had a fever. He denies any access to synthetic drugs. Patient's son does state that they have been under a lot of stress recently and are trying to move out of state. Past Medical History: Fibromyalgia, chronic back pain Past Surgical History: Reviewed in chart Social History: Reviewed in chart Family History: Reviewed and noncontributory for presenting illness Allergies: Reviewed, see documented allergy list. REVIEW OF SYSTEMS: Unable to obtain because of acuity of condition and confusion PHYSICAL EXAMINATION: Vital signs reviewed, nursing noted reviewed. GENERAL: Unkempt, well-nourished and in no acute distress. HEAD: Atraumatic, normocephalic. EYES: Eyes appear normal, extraocular movements intact, sclera anicteric, conjunctiva are normal. ENT: nares patent, oropharynx clear without exudates. Moist mucous membranes. NECK: Normal range of motion, supple without lymphadenopathy LUNGS: Breath sounds clear to auscultation bilaterally and equal. No wheezes rales or rhonchi. HEART: Tachycardic rate and regular rhythm without murmurs ABDOMEN: Soft, nontender, normoactive bowel sounds. No rebound, guarding, or rigidity. No masses appreciated. EXTREMITIES: Nontender, good range of motion, no pitting or edema. NEUROLOGICAL: GCS 15, oriented to person only, tremulous, moves all extremities spontaneously Motor and sensory grossly intact on exam. PSYCH: Flat affect SKIN: Warm, Dry, normal turgor, no rashes or lesions noted on exposed skin - Related Data Allergies/Adverse Reactions: Penicillins Allergy (Verified 10/26/18 03:34) Sulfa (Sulfonamide Antibiotics) Allergy (Verified 10/26/18 03:34) morphine Adverse Reaction (Verified 10/26/18 03:34) Past Medical History - Social History Smoking Status: Never Smoker Chew tobacco use (# tins/day): No Frequency of alcohol use: None Drug Abuse: None Family History: Reviewed & Not Pertinent Patient has suicidal ideation: No Patient has homicidal ideation: No Renal/ Medical History: Denies: Hx Peritoneal Dialysis Psychiatric Medical History: Reports: Hx Depression - and anxiety Past Surgical History: Reports: Hx Orthopedic Surgery - back, Other - lumbar spine surgery for herniated discs Physical Exam - Vital signs Vitals: Temp Pulse Resp BP Pulse Ox 99.9 F 103 H 18 131/80 H 99 11/11/18 05:45 11/11/18 05:45 11/11/18 05:45 11/11/18 05:45 11/11/18 05:45 Course - Re-evaluation Re-evalutation: 11/11/18 08:25 Vitals reviewed. Nursing notes reviewed. Patient is altered but redirectable. She is very fidgety and is trying to get out of the bed and wander the halls. Patient CT brain is normal. Urinalysis is negative for infection. Patient does have an acute metabolic acidosis without compensation. This may be related to recent drug use. She is receiving IV hydration. The remainder of her workup is unremarkable. Ammonia is negative. Patient was given Ativan for her agitation. I did extensively ip counsel the son on stopping kratom use for this patient, she has a pain management appointment scheduled on Tuesday and he is hopeful that they will begin her opiate medications again so he can stop giving her the medication. Patient is still confused and acidotic. She will be admitted for further management. Case discussed with Good Hoffmann NP who accepts admission. Laboratory 11/11/18 11/11/18 11/11/18 05:50 05:50 06:30 WBC 10.9 H RBC 4.50 Hgb 13.7 Hct 40.8 MCV 91 MCH 30.5 MCHC 33.6 RDW 13.9 Plt Count 264 Seg Neutrophils % 70.2 Lymphocytes % 19.9 Monocytes % 7.4 Eosinophils % 1.8 Basophils % 0.7 Absolute Neutrophils 7.6 Absolute Lymphocytes 2.2 Absolute Monocytes 0.8 Absolute Eosinophils 0.2 Absolute Basophils 0.1 Carbonic Acid HCO3/H2CO3 Ratio ABG pH ABG pCO2 ABG pO2 ABG HCO3 ABG Total CO2 ABG O2 Saturation ABG Base Excess FiO2 Sodium 145.2 H Potassium 3.9 Chloride 115 H Carbon Dioxide 16 L Anion Gap 14 BUN 21 H Creatinine 1.23 Est GFR ( Amer) 55 L Est GFR (Non-Af Amer) 45 L Glucose 108 Calcium 9.3 Total Bilirubin 0.3 Direct Bilirubin 0.3 Neonat Total Bilirubin Not Reportable Neonat Direct Bilirubin Not Reportable Neonat Indirect Bili Not Reportable AST 16 ALT 35 Alkaline Phosphatase 132 H Ammonia Total Protein 6.3 Albumin 4.0 Urine Color YELLOW Urine Appearance CLEAR Urine pH 5.0 Ur Specific [place] 1.015 Urine Protein 30 H Urine Glucose (UA) NEGATIVE Urine Ketones NEGATIVE Urine Blood NEGATIVE Urine Nitrite NEGATIVE Urine Bilirubin NEGATIVE Urine Urobilinogen NEGATIVE Ur Leukocyte Esterase NEGATIVE Urine WBC (Auto) 2 Urine RBC (Auto) 1 U Hyaline Cast (Auto) 1 Urine Ascorbic Acid NEGATIVE Salicylates < 1.0 L Urine Opiates Screen Urine Methadone Screen Acetaminophen < 10 L Ur Barbiturates Screen Ur Phencyclidine Scrn Ur Amphetamines Screen U Benzodiazepines Scrn Urine Cocaine Screen U Marijuana (THC) Screen Serum Alcohol < 10 11/11/18 11/11/18 11/11/18 06:30 07:05 07:05 WBC RBC Hgb Hct MCV MCH MCHC RDW Plt Count Seg Neutrophils % Lymphocytes % Monocytes % Eosinophils % Basophils % Absolute Neutrophils Absolute Lymphocytes Absolute Monocytes Absolute Eosinophils Absolute Basophils Carbonic Acid 0.98 L HCO3/H2CO3 Ratio 14:1 ABG pH 7.26 L ABG pCO2 32.5 L ABG pO2 98.1 ABG HCO3 14.1 L ABG Total CO2 15.1 L ABG O2 Saturation 96.6 ABG Base Excess -11.8 FiO2 ROOM AIR Sodium Potassium Chloride Carbon Dioxide Anion Gap BUN Creatinine Est GFR ( Amer) Est GFR (Non-Af Amer) Glucose Calcium Total Bilirubin Direct Bilirubin Neonat Total Bilirubin Neonat Direct Bilirubin Neonat Indirect Bili AST ALT Alkaline Phosphatase Ammonia < 8.7 L Total Protein Albumin Urine Color Urine Appearance Urine pH Ur Specific [place] Urine Protein Urine Glucose (UA) Urine Ketones Urine Blood Urine Nitrite Urine Bilirubin Urine Urobilinogen Ur Leukocyte Esterase Urine WBC (Auto) Urine RBC (Auto) U Hyaline Cast (Auto) Urine Ascorbic Acid Salicylates Urine Opiates Screen NEGATIVE Urine Methadone Screen NEGATIVE Acetaminophen Ur Barbiturates Screen NEGATIVE Ur Phencyclidine Scrn NEGATIVE Ur Amphetamines Screen NEGATIVE U Benzodiazepines Scrn NEGATIVE Urine Cocaine Screen NEGATIVE U Marijuana (THC) Screen NEGATIVE Serum Alcohol Head CT 11/11/18 05:51 IMPRESSION: Negative for acute intracranial abnormality TECHNICAL DOCUMENTATION: Quality ID # 436: Final reports with documentation of one or more dose reduction techniques (e.g., Automated exposure control, adjustment of the mA and/or kV according to patient size, use of iterative reconstruction technique) copyright 2010 [employer]- All Rights Reserved 11/11/18 08:55 - Vital Signs Vital signs: Temp Pulse Resp BP Pulse Ox 99.9 F 103 H 16 127/86 H 97 11/11/18 05:45 11/11/18 05:45 11/11/18 07:01 11/11/18 07:01 11/11/18 07:01 - Laboratory Result Diagrams: 11/11/18 05:50 11/11/18 05:50 Laboratory results interpreted by me: 11/11/18 11/11/18 11/11/18 05:50 05:50 06:30 WBC 10.9 H Carbonic Acid ABG pH ABG pCO2 ABG HCO3 ABG Total CO2 Sodium 145.2 H Chloride 115 H Carbon Dioxide 16 L BUN 21 H Est GFR ( Amer) 55 L Est GFR (Non-Af Amer) 45 L Alkaline Phosphatase 132 H Ammonia Urine Protein 30 H Salicylates < 1.0 L Acetaminophen < 10 L 11/11/18 11/11/18 07:05 07:05 WBC Carbonic Acid 0.98 L ABG pH 7.26 L ABG pCO2 32.5 L ABG HCO3 14.1 L ABG Total CO2 15.1 L Sodium Chloride Carbon Dioxide BUN Est GFR ( Amer) Est GFR (Non-Af Amer) Alkaline Phosphatase Ammonia < 8.7 L Urine Protein Salicylates Acetaminophen - EKG Interpretation by Me Additional EKG results interpreted by me: 11/11/18 06:52 Interpreted by myself [id number]: Sinus tachycardia, rate 102, normal axis, no ectopy, no ST elevation, no significant change from 10/26/18 Discharge - Discharge Clinical Impression: Metabolic acidosis, normal anion gap (NAG), Confusion Medication reaction Qualifiers: Encounter type: initial encounter Qualified Code(s): T50.905A - Adverse effect of unspecified drugs, medicaments and biological substances, initial encounter Condition: Stable Disposition: ADMITTED INPATIENT Admitting Provider: Hospitalist Unit Admitted: Telemetry
[2018-11-11 07:02] LABS: URINE AMPHETAMINES SCREEN NEGATIVE; URINE BARBITURATES SCREEN NEGATIVE; URINE BENZODIAZEPINES SCREEN NEGATIVE; URINE COCAINE SCREEN NEGATIVE; URINE MARIJUANA (THC) SCREEN NEGATIVE; URINE METHADONE SCREEN NEGATIVE; URINE PHENCYCLIDINE SCREEN NEGATIVE
[2018-11-11 07:22] LABS: ARTERIAL BLOOD BASE EXCESS -11.8 mmol/L; ARTERIAL BLOOD H2CO3 0.98 mmol/L (1.05-1.35); ARTERIAL BLOOD HCO3 14.1 mmol/L (20-24); ARTERIAL BLOOD O2 SATURATION 96.6 % (94-98); ARTERIAL BLOOD PCO2 32.5 mmHg (35-45); ARTERIAL BLOOD PH 7.26 (7.35-7.45); ARTERIAL BLOOD PO2 98.1 mmHg (80-100); ARTERIAL BLOOD TOTAL CO2 15.1 mmol/L (21-25)
[2018-11-11 07:23] LABS: ARTERIAL BLOOD FIO2 ROOM AIR
[2018-11-11] MEDS ORDERED: LORAZEPAM INJ 2 MG/1 ML VIAL IV ONE (07:58)
--- NOTE | 2018-11-11 11:04 | RADIOLOGY REPORT (SQ) ---
EXAM DESCRIPTION: CHEST SINGLE VIEW COMPLETED DATE/TIME: 11/11/2018 10:46 am REASON FOR STUDY: cough COMPARISON: 2018. NUMBER OF VIEWS: One view. TECHNIQUE: Single frontal radiographic view of the chest acquired. LIMITATIONS: None. FINDINGS: LUNGS AND PLEURA: No opacities, masses or pneumothorax. No pleural effusion. MEDIASTINUM AND HILAR STRUCTURES: No masses. Contour normal. HEART AND VASCULAR STRUCTURES: Heart normal in size. Normal vasculature. BONES: No acute findings. HARDWARE: None in the chest. OTHER: No other significant finding. IMPRESSION: NO SIGNIFICANT RADIOGRAPHIC FINDING IN THE CHEST. TECHNICAL DOCUMENTATION: JOB ID: [id number] [employer]- All Rights Reserved Reading location - IP/workstation name: [email or web address]
--- NOTE | 2018-11-11 12:33 | EKG REPORT ---
SEVERITY:- ABNORMAL ECG - SINUS TACHYCARDIA PROBABLE POSTERIOR INFARCT : Confirmed by: Shady Young 11-Nov-2018 12:32:59
[2018-11-11] MEDS ORDERED: ONDANSETRON 4 MG TAB.RAPDIS PO PRN (14:50)
[2018-11-11] MEDS ORDERED: MAG HYDROX/AL HYDROX/SIMETH SUSP 30 ML UDCUP PO PRN (14:50)
[2018-11-11] MEDS ORDERED: ACETAMINOPHEN 325 MG TABLET PO PRN (14:50)
[2018-11-11] MEDS ORDERED: HALOPERIDOL 5 MG TABLET PO PRN (14:55)
[2018-11-11] MEDS ORDERED: BENZTROPINE MESYLATE 1 MG TABLET PO PRN (14:55)
[2018-11-11] MEDS ORDERED: OLANZAPINE INJ/PF 10 MG SDV IM PRN (14:57)
--- NOTE | 2018-11-11 15:04 | PDOC H&P ---
History of Present Illness Admission Date/PCP: 11/11/18 09:08 KESHAWN CM MD History of Present Illness: SOLANGE ERAZO is a 58 year old female with limited known past medical history. 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 Limited information is available. Patient reported a hospital early Tuesday morning with her son with acute psychotic behavior she has what appears to be significant thought blocking. She shakes or rocks from time to time. Usually followed by episodes of dozing off for a few seconds. She will then wake up and may answer question, even at times correctly. Then any further questioning will be answered with the same answer used for the first question. We will have to attempt to obtain further information from family or patient as she improves. Past Medical History Past Medical History: Unable to assess Psychiatric Medical History: Reports: Depression - and anxiety Past Surgical History Past Surgical History: Reports: Orthopedic Surgery - back, Other - lumbar spine surgery for herniated discs Social History Smoking Status: Unknown if Ever Smoked - Advance Directive Resuscitation Status: Full Code Family History Family History: Reviewed & Not Pertinent Parental Family History Reviewed: No Children Family History Reviewed: No Sibling(s) Family History Reviewed.: No Medication/Allergy Home Medications: Baclofen [Baclofen 20 mg Tablet] 20 mg PO Q8HP PRN 11/11/18 Clonazepam [Klonopin 1 mg Tablet] 1 mg PO Q12HP PRN 11/11/18 Clonidine HCl [Catapres 0.1 mg Tablet] 0.1 mg PO QHS 11/11/18 Gabapentin [Neurontin] 600 mg PO Q8 11/11/18 Ibuprofen [Motrin 800 mg Tablet] 800 mg PO Q8HP PRN 11/11/18 Oxycodone HCl 15 mg PO Q12HP PRN 11/11/18 Promethazine HCl [Phenergan 25 mg Tablet] 25 mg PO Q8HP PRN 11/11/18 Allergies/Adverse Reactions: Penicillins Allergy (Verified 10/26/18 03:34) Sulfa (Sulfonamide Antibiotics) Allergy (Verified 10/26/18 03:34) morphine Adverse Reaction (Verified 10/26/18 03:34) Review of Systems ROS unobtainable: Due to mental status Physical Exam Vital Signs: Temp Pulse Resp BP Pulse Ox 98.4 F 103 H 17 102/71 96 11/11/18 12:44 11/11/18 05:45 11/11/18 12:44 11/11/18 12:44 11/11/18 12:44 Intake & Output 11/10/18 11/11/18 11/12/18 06:59 06:59 06:59 Intake Total 1999 Balance 1999 General appearance: PRESENT: no acute distress, cooperative - Mostly Head exam: PRESENT: atraumatic, normocephalic Eye exam: PRESENT: conjunctiva pink, EOMI, PERRLA. ABSENT: scleral icterus Ear exam: PRESENT: normal external ear exam Mouth exam: PRESENT: moist, tongue midline Respiratory exam: PRESENT: other - No appreciable wheeze, rhonchi, rales. Cardiovascular exam: PRESENT: +S1, +S2, tachycardia GI/Abdominal exam: PRESENT: normal bowel sounds, soft. ABSENT: distended, guarding, mass, organolmegaly, rebound, tenderness Extremities exam: PRESENT: other - 1+ edema bilateral lower extremities. Neurological exam: PRESENT: alert, awake, oriented to person, oriented to place, CN II-XII grossly intact, other - Gait not assessed Psychiatric exam: PRESENT: unusual affect Focused psych exam: PRESENT: other - Limited speech. None of it is spontaneous Results Laboratory Results: 11/11/18 05:50 11/11/18 05:50 11/11/18 11/11/18 11/11/18 05:50 05:50 06:30 WBC 10.9 H RBC 4.50 Hgb 13.7 Hct 40.8 MCV 91 MCH 30.5 MCHC 33.6 RDW 13.9 Plt Count 264 Seg Neutrophils % 70.2 Lymphocytes % 19.9 Monocytes % 7.4 Eosinophils % 1.8 Basophils % 0.7 Absolute Neutrophils 7.6 Absolute Lymphocytes 2.2 Absolute Monocytes 0.8 Absolute Eosinophils 0.2 Absolute Basophils 0.1 Carbonic Acid HCO3/H2CO3 Ratio ABG pH ABG pCO2 ABG pO2 ABG HCO3 ABG O2 Saturation ABG Base Excess FiO2 Sodium 145.2 H Potassium 3.9 Chloride 115 H Carbon Dioxide 16 L Anion Gap 14 BUN 21 H Creatinine 1.23 Est GFR ( Amer) 55 L Est GFR (Non-Af Amer) 45 L Glucose 108 Lactic Acid Calcium 9.3 Total Bilirubin 0.3 AST 16 ALT 35 Alkaline Phosphatase 132 H Ammonia Total Protein 6.3 Albumin 4.0 Urine Color YELLOW Urine Appearance CLEAR Urine pH 5.0 Ur Specific Harper 1.015 Urine Protein 30 H Urine Glucose (UA) NEGATIVE Urine Ketones NEGATIVE Urine Blood NEGATIVE Urine Nitrite NEGATIVE Ur Leukocyte Esterase NEGATIVE Urine WBC (Auto) 2 Urine RBC (Auto) 1 11/11/18 11/11/18 11/11/18 07:05 07:05 09:23 WBC RBC Hgb Hct MCV MCH MCHC RDW Plt Count Seg Neutrophils % Lymphocytes % Monocytes % Eosinophils % Basophils % Absolute Neutrophils Absolute Lymphocytes Absolute Monocytes Absolute Eosinophils Absolute Basophils Carbonic Acid 0.98 L HCO3/H2CO3 Ratio 14:1 ABG pH 7.26 L ABG pCO2 32.5 L ABG pO2 98.1 ABG HCO3 14.1 L ABG O2 Saturation 96.6 ABG Base Excess -11.8 FiO2 ROOM AIR Sodium Potassium Chloride Carbon Dioxide Anion Gap BUN Creatinine Est GFR ( Amer) Est GFR (Non-Af Amer) Glucose Lactic Acid 0.5 L Calcium Total Bilirubin AST ALT Alkaline Phosphatase Ammonia < 8.7 L Total Protein Albumin Urine Color Urine Appearance Urine pH Ur Specific Harper Urine Protein Urine Glucose (UA) Urine Ketones Urine Blood Urine Nitrite Ur Leukocyte Esterase Urine WBC (Auto) Urine RBC (Auto) Impressions: Head CT 11/11/18 05:51 IMPRESSION: Negative for acute intracranial abnormality TECHNICAL DOCUMENTATION: Quality ID # [id number]: Final reports with documentation of one or more dose reduction techniques (e.g., Automated exposure control, adjustment of the mA and/or kV according to patient size, use of iterative reconstruction technique) copyright 2011 [email or web address]- All Rights Reserved Chest X-Ray 11/11/18 07:35 IMPRESSION: NO SIGNIFICANT RADIOGRAPHIC FINDING IN THE CHEST. Assessment and Plan - Diagnosis (1) Psychosis Qualifiers: Psychosis type: unspecified psychosis type Qualified Code(s): F29 - Unspecified psychosis not due to a substance or known physiological condition Is this a current diagnosis for this admission?: Yes - Time Time Spent with patient: 15-24 minutes Medications reviewed and adjusted accordingly: Yes Anticipated discharge: Home - Inpatient Certification Based on my medical assessment, after consideration of the patient's comorbidities, presenting symptoms, or acuity I expect that the services needed warrant INPATIENT care.: Yes I certify that my determination is in accordance with my understanding of Medicare's requirements for reasonable and necessary INPATIENT services [42 CFR 412.3e].: Yes - Plan Summary Plan Summary: Limited history and physical was able to be obtained at the time of admission. Further information to be obtained from family and/or patient as she improves. 1. Unspecified psychosis: Working diagnosis. 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 -We will proceed with psychiatric recommendations of p.o. Haldol 5 mg every 12 hours for agitation -As needed IM Zyprexa 5 mg every 8 hours for agitation -Start Cogentin 1 mg daily p.o. if Haldol is started. -Resume IV fluids at a rate of 115 an hour -Continue to monitor and adjust accordingly. 2. Hyper Na+ -suggest dehydration. continue IVF. re-check Anticoagulation not started due to falls risk.
[2018-11-11] MEDS: NORMAL SALINE 1000 ML 1,000 ML IV PRN (16:55)
[2018-11-11] MEDS: MORPHINE SULFATE 10 MG/ML INJ IV PRN (22:10)
--- NOTE | 2018-11-11 22:15 | EKG REPORT ---
SEVERITY:- NORMAL ECG - SINUS RHYTHM : Confirmed by: Shady Young 11-Nov-2018 22:14:14
[2018-11-12] MEDS: NORMAL SALINE 1000 ML 1,000 ML IV PRN ×2 (02:40→13:42)
[2018-11-12] MEDS: MORPHINE SULFATE 10 MG/ML INJ IV PRN ×3 (02:40→10:54)
[2018-11-12 04:52] LABS: ABSOLUTE EOSINOPHILS # (AUTO) 0.1 10^3/uL (0.0-0.6); ABSOLUTE LYMPHOCYTES (AUTO) 1.6 10^3/uL (0.5-4.7); ABSOLUTE MONOCYTES (AUTO) 0.4 10^3/uL (0.1-1.4); ABSOLUTE NEUT (AUTO) 4.3 10^3/uL (1.7-8.2); BASOPHILS % (AUTO) 0.6 % (0-2); EOSINOPHILS % (AUTO) 1.9 % (0-6); HEMATOCRIT 34.7 % (36.0-47.0); HEMOGLOBIN 11.9 g/dL (12.0-15.5); LYMPHOCYTES % (AUTO) 24.5 % (13-45); MEAN CORPUSCULAR HEMOGLOBIN 30.9 pg (27.0-33.4); MEAN CORPUSCULAR HGB CONC 34.2 g/dL (32.0-36.0); MEAN CORPUSCULAR VOLUME 90 fl (80-97); MONOCYTES % (AUTO) 5.9 % (3-13); PLATELET COUNT 189 10^3/uL (150-450); RED BLOOD COUNT 3.84 10^6/uL (3.72-5.28); RED CELL DISTRIBUTION WIDTH 13.5 % (11.5-14.0); SEGMENTED NEUTROPHILS % (AUTO) 67.1 % (42-78); TOTAL CELLS COUNTED % (AUTO) 100 %; WHITE BLOOD COUNT 6.4 10^3/uL (4.0-10.5)
[2018-11-12 05:24] LABS: ALANINE AMINOTRANSFERASE 27 U/L (9-52); ALBUMIN 3.4 g/dL (3.5-5.0); ALKALINE PHOSPHATASE 83 U/L (38-126); ANION GAP 10 (5-19); ASPARTATE AMINO TRANSFERASE 14 U/L (14-36); BILIRUBIN,DIRECT 0.2 mg/dL (0.0-0.4); BILIRUBIN,TOTAL 0.4 mg/dL (0.2-1.3); BLOOD UREA NITROGEN 13 mg/dL (7-20); CALCIUM 9.2 mg/dL (8.4-10.2); CARBON DIOXIDE 15 mmol/L (22-30); CHLORIDE 117 mmol/L (98-107); CREATINE KINASE 35 U/L (30-135); GLUCOSE 93 mg/dL (75-110); POTASSIUM 3.5 mmol/L (3.6-5.0); SODIUM 142.3 mmol/L (137-145); TOTAL PROTEIN 5.6 g/dL (6.3-8.2)
[2018-11-12] MEDS ORDERED: MORPHINE SULFATE 10 MG/ML INJ IV PRN (14:38)
[2018-11-12] MEDS ORDERED: ACETAMINOPHEN 325 MG TABLET PO PRN (14:39)
[2018-11-12] MEDS ORDERED: HYDROCODONE/ACETAMINOPHEN 5-325 MG TABLET PO PRN (14:40)
[2018-11-12 17:49] VITALS: BP 156/97
--- NOTE | 2018-11-12 18:01 | PDOC DISCHARGE SUMMARY ---
General - Admit/Disc Date/PCP Admission Date/Primary Care Provider: 11/11/18 09:08 KESHAWN CM MD Discharge Date: 11/12/18 - Discharge Diagnosis (1) Psychosis Is this a current diagnosis for this admission?: Yes (2) Hypernatremia Is this a current diagnosis for this admission?: Yes (3) Hypokalemia Is this a current diagnosis for this admission?: Yes - Additional Information Resuscitation Status: Full Code Discharge Diet: As Tolerated Discharge Activity: Activity As Tolerated Prescriptions: Amlodipine Besylate [Norvasc 5 mg Tablet] 5 mg PO DAILY #30 tablet Home Medications: Baclofen [Baclofen 20 mg Tablet] 20 mg PO Q8HP PRN 11/11/18 Clonazepam [Klonopin 1 mg Tablet] 1 mg PO Q12HP PRN 11/11/18 Clonidine HCl [Catapres 0.1 mg Tablet] 0.1 mg PO QHS 11/11/18 Gabapentin [Neurontin] 600 mg PO Q8 11/11/18 Amlodipine Besylate [Norvasc 5 mg Tablet] 5 mg PO DAILY #30 tablet 11/12/18 History of Present Illness History of Present Illness: SOLANGE ERAZO is a 58 year old female with limited known past medical history. 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 Limited information is available. Patient reported a hospital early Tuesday morning with her son with acute psychotic behavior she has what appears to be significant thought blocking. She shakes or rocks from time to time. Usually followed by episodes of dozing off for a few seconds. She will then wake up and may answer question, even at times correctly. Then any further questioning will be answered with the same answer used for the first question. We will have to attempt to obtain further information from family or patient as she improves. Hospital Course Hospital Course: Patient was initially monitored one-to-one in the emergency room, before being transferred up to the third floor for further monitoring. She had PRN m edications ordered while under our care that included Haldol and Zyprexa. She did not receive these medications from the medical service. It does seem that she received as needed Haldol and Ativan in the emergency room. The patient's symptoms of psychosis gradually improved over the 48 hours she was under our care. She was pleasant throughout much of her stay, even while psychotic. Her most common behavior while psychotic would be to rock, fall asleep, and repeat the same word over and over again. Conversation was had with psychiatry in regards to medication options, and a medication like Thorazine or Haldol was recommended for its dopamine agonist him in order to help with a significant thought blocking. Further recommendations were to use Cogentin for EPS side effects. None of these medications ultimately were administered, and the patient's symptoms resolved on their own with some help of continuous IV normal saline. She did demonstrate some slight lab abnormalities, all of which can be attributed to a psychotic episode. Elevated blood pressures as high as the 160s and 170 systolic were obtained while admitted, but are most consistent systolic blood pressure was up around 150. She is aware that this needs further monitoring and likely needs medication. Part of the increase in blood pressure likely due to IV fluids and which we administered. The other part likely due to psychosis, as well as pain. She is agreeable to following up outpatient to have this managed. Problems: 1. Unspecified psychosis: Working diagnosis. 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 -Recommend avoiding kratom and other substances are not approved by the FDA until further investigation can be done. 2. Electrolyte abnormalities -Elevated sodium normalized with IV fluids. Potassium slightly below normal limits partially due to dilution. 3. DVT prophylaxis: anticoagulation not started due to falls risk. 4. Elevated blood pressure: Partially due to the IV fluids were administered. Also likely due to psychosis and pain. Plans to follow up with outpatient provider. All things considered blood pressure probably is still slightly elevated. We will start her on 5 mg of amlodipine nightly. Recommendations to follow with PCP for further management. Physical Exam Vital Signs: Temp Pulse Resp BP Pulse Ox 98.7 F 66 16 167/88 H 100 11/12/18 11:45 11/12/18 14:00 11/12/18 11:45 11/12/18 11:45 11/12/18 11:45 Intake & Output 11/11/18 11/12/18 11/13/18 06:59 06:59 06:59 Intake Total 3125 1236 Balance 3125 1236 Weight 91 kg General appearance: PRESENT: no acute distress, well-developed, well-nourished Head exam: PRESENT: atraumatic, normocephalic Eye exam: PRESENT: conjunctiva pink, EOMI, PERRLA. ABSENT: scleral icterus Ear exam: PRESENT: normal external ear exam Mouth exam: PRESENT: moist, tongue midline Respiratory exam: PRESENT: other - No appreciable wheeze, rhonchi, or rales. Clear to auscultation bilaterally. Cardiovascular exam: PRESENT: RRR, +S1, +S2 GI/Abdominal exam: PRESENT: normal bowel sounds, soft. ABSENT: distended, guarding, mass, organolmegaly, rebound, tenderness Rectal exam: PRESENT: deferred Extremities exam: PRESENT: other - Trace edema bilateral lower extremities. Musculoskeletal exam: PRESENT: full ROM, normal inspection Neurological exam: PRESENT: alert, awake, oriented to person, oriented to place, oriented to time, oriented to situation, CN II-XII grossly intact. ABSENT: motor sensory deficit Psychiatric exam: PRESENT: flat affect, unusual affect Results Laboratory Results: 11/12/18 03:32 11/12/18 03:32 11/12/18 11/12/18 11/12/18 03:32 03:32 03:32 WBC 6.4 RBC 3.84 Hgb 11.9 L Hct 34.7 L MCV 90 MCH 30.9 MCHC 34.2 RDW 13.5 Plt Count 189 Seg Neutrophils % 67.1 Lymphocytes % 24.5 Monocytes % 5.9 Eosinophils % 1.9 Basophils % 0.6 Absolute Neutrophils 4.3 Absolute Lymphocytes 1.6 Absolute Monocytes 0.4 Absolute Eosinophils 0.1 Absolute Basophils 0.0 Sodium 142.3 Potassium 3.5 L Chloride 117 H Carbon Dioxide 15 L Anion Gap 10 BUN 13 Creatinine 0.81 Est GFR ( Amer) > 60 Est GFR (Non-Af Amer) > 60 Glucose 93 Calcium 9.2 Magnesium 1.9 Total Bilirubin 0.4 AST 14 ALT 27 Alkaline Phosphatase 83 Total Protein 5.6 L Albumin 3.4 L TSH 1.40 11/12/18 03:32 Creatine Kinase 35 Impressions: Head CT 11/11/18 05:51 IMPRESSION: Negative for acute intracranial abnormality TECHNICAL DOCUMENTATION: Quality ID # [id number]: Final reports with documentation of one or more dose reduction techniques (e.g., Automated exposure control, adjustment of the mA and/or kV according to patient size, use of iterative reconstruction technique) copyright 2011 [employer]- All Rights Reserved Chest X-Ray 11/11/18 07:35 IMPRESSION: NO SIGNIFICANT RADIOGRAPHIC FINDING IN THE CHEST. Qualifiers - * PATIENT BEING DISCHARGED WITH ANY OF THE FOLLOWING DIAGNOSIS: No Plan Discharge Plan: -Follow-up with outpatient psychiatry -Follow-up with primary care provider in the next week, and discussed elevated blood pressure -Please avoid use and substance not approved by the FDA -Please discuss stopping either the benzodiazepine or the narcotic. These 2 medications should not be used at the same time if at all possible. Time Spent: Greater than 30 Minutes
== END 2018-11-12 19:25 | disposition home or self-care (01) | DRG 884 ==
LOC: ER 05:42 → EH 09:08 → 3N 13:10
PROVIDERS: ADMIT Internal Medicine; ATTEND Internal Medicine
DX: F09 Unspecified mental disorder due to known physiological condition (principal); E87.0 Hyperosmolality and hypernatremia; T50.995A Adverse effect of other drugs, medicaments and biological substances, initial encounter; E87.6 Hypokalemia; E86.0 Dehydration; M79.7 Fibromyalgia; M54.89 Other dorsalgia; F41.8 Other specified anxiety disorders; Y92.019 Unspecified place in single-family (private) house as the place of occurrence of the external cause
CPT/HCPCS: 36415; 70450; 71045; 80053; 80307; 81001; 82140; 82550; 82803; 83605; 83735; 84443; 85025; 93005; 93010; 96361; 96374; 99285; J2060; J2270; J7030